=== PATIENT | female | born 1955 | race Two or more races ===

== ENCOUNTER → 2022-10-14 | Outpatient (CLI) | payer OTHER ==
[~2022-10-14] MED LIST: TOPROL XL25 MG PO
== END | disposition home or self-care (01) ==
LOC: NUCLEAR 10-06 07:00
PROVIDERS: ATTEND Internal Medicine Gastroenterology
DX: R10.9 Unspecified abdominal pain (principal); R68.81 Early satiety
CPT/HCPCS: 78264; A9541

== ENCOUNTER 2023-11-20 15:40 | Emergency (ER) | payer OTHER ==
[~2023-11-20] VITALS: Ht 162.6 cm; Wt 63.5 kg
[2023-11-20] MEDS ORDERED: TRULICITY3 MG/0.5 M SQ (16:39)
[2023-11-20] MEDS ORDERED: XIGDUO XR 10 M1 EACH PO (16:40)
[2023-11-20] MEDS ORDERED: PRILOSEC10 MG PO (16:41)
[2023-11-20] MEDS ORDERED: CRESTOR10 MG PO (16:41)
[2023-11-20] MEDS ORDERED: NEURONTIN300 MG PO (16:41)
== END 2023-11-20 22:30 | disposition home or self-care (01) ==
LOC: ER 15:41
DX: S00.83XA Contusion of other part of head, initial encounter (principal); W19.XXXA Unspecified fall, initial encounter; Y93.9 Activity, unspecified; Y92.9 Unspecified place or not applicable; Y99.9 Unspecified external cause status; E11.9 Type 2 diabetes mellitus without complications; Z79.84 Long term (current) use of oral hypoglycemic drugs; Z20.822 Contact with and (suspected) exposure to COVID-19